=== PATIENT | male | born 1960 | race Caucasian/White ===

== ENCOUNTER 2016-12-11 04:56 | Inpatient (IN) ==
[2016-12-04 11:50] LABS: Blood Urea Nitrogen 13 mg/dl (6-20)
[2016-12-04 12:03] LABS: Basophils # (Auto) 0.1 K/mcL (0.0-0.3); Basophils % (Auto) 0.7 % (0.0-2.0); Eosinophils # (Auto) 0.1 K/mcL (0.0-0.7); Eosinophils % (Auto) 1.6 % (0.0-7.0); Granulocytes % (Auto) 64.5 % (38.0-78.0); Lymphocytes # (Auto) 2.1 K/mcL (1.5-4.8); Lymphocytes % (Auto) 26.6 % (15.5-49.0); Mean Cell Volume 86.6 fL (80.0-100.0); Mean Corpuscular HGB Conc 34.5 g/dL (31.0-36.0); Mean Corpuscular Hemoglobin 29.9 pg (26.0-34.0); Monocytes # (Auto) 0.5 K/mcL (0.1-0.9); Monocytes % (Auto) 6.6 % (1.0-12.0); Platelet Count 202 K/mcL (140-440); RBC 5.04 M/mcL (4.50-5.90); Red Cell Distribution Width 13.7 % (11.5-14.5)
[2016-12-04 13:05] LABS: Appearance,Urine CLEAR; Bilirubin,Urine NEG (NEG); Color,Urine STRAW; Glucose,Urine (UA) NEGATIVE (NEG); Leukocyte Esterase,Urine NEG /uL (NEG); Nitrate,Urine NEG (NEG); Protein,Urine NEG (NEG); Specific Gravity,Urine 1.009 (1.000-1.035); Urine Blood NEG mg/dL (<0.03); Urobilinogen,Urine NEG (NEG)
[2016-12-11] MEDS ORDERED: ceFAZolin 1 GM VIAL IV SCH ×2 (06:00→15:00)
[2016-12-11] MEDS ORDERED: TRANEXAMIC ACID 1,000 MG/10 ML VIAL IV ONE (07:45)
[2016-12-11] MEDS ORDERED: KETOROLAC 30 MG/ML VIAL IV ONE (07:45)
[2016-12-11] MEDS ORDERED: LIDOCAINE HCL/PF 100 MG/5 ML SYRINGE IV ONE (07:45)
[2016-12-11] MEDS ORDERED: MIDAZOLAM 5 MG/5 ML VIAL IV ONE (07:45)
[2016-12-11] MEDS ORDERED: ONDANSETRON 4 MG/2 ML VIAL IV ONE (07:45)
[2016-12-11] MEDS ORDERED: ROPIVACAINE HCL/PF 30 ML VIAL IJ ONE (07:45)
[2016-12-11] MEDS ORDERED: PROPOFOL 200 MG/20 ML VIAL IV ONE (07:45)
[2016-12-11] MEDS ORDERED: DEXAMETHASONE 10 MG/ML VIAL IV ONE (07:45)
[2016-12-11] MEDS ORDERED: KETAMINE 100 MG/ML ML IV ONE (07:45)
[2016-12-11] MEDS ORDERED: fentaNYL 250 MCG/5 ML VIAL IV ONE (07:45)
[2016-12-11] MEDS ORDERED: PHENYLEPHRINE 10 MG/ML VIAL IV ONE (07:45)
[2016-12-11] MEDS ORDERED: ROCURONIUM 10 MG/ML ML IV ONE (07:45)
[2016-12-11] MEDS ORDERED: GENTAMICIN SULFATE 800 MG/20 ML VIAL IR ONE (08:14)
[2016-12-11] MEDS ORDERED: PROMETHAZINE 25 MG/ML VIAL IM PRN (09:38)
[2016-12-11] MEDS ORDERED: PROMETHAZINE 25 MG/ML VIAL IV PRN (09:38)
[2016-12-11] MEDS ORDERED: METHOCARBAMOL 1,000 MG/10 ML VIAL IV PRN (09:38)
[2016-12-11] MEDS ORDERED: ONDANSETRON 4 MG/2 ML VIAL IV PRN ×2 (09:38→09:55)
[2016-12-11] MEDS ORDERED: BENZOCAINE/MENTHOL 1 LOZENGE PO PRN (09:38)
[2016-12-11] MEDS ORDERED: ATROPINE SULFATE 0.4 MG/ML VIAL IV PRN (09:38)
[2016-12-11] MEDS ORDERED: METOPROLOL TARTRATE 5 MG/5 ML VIAL IV PRN (09:38)
[2016-12-11] MEDS ORDERED: MEPERIDINE 25 MG/ML SYRINGE IV PRN (09:38)
[2016-12-11] MEDS ORDERED: IPRATROPIUM/ALBUTEROL 3 ML AMPUL.NEB NEB PRN (09:38)
[2016-12-11] MEDS ORDERED: MEPERIDINE 50 MG/ML SYRINGE IM PRN (09:38)
[2016-12-11] MEDS ORDERED: ePHEDrine 50 MG/ML AMPUL IV PRN (09:38)
[2016-12-11] MEDS ORDERED: diphenhydrAMINE 50 MG/ML VIAL IV PRN (09:38)
[2016-12-11] MEDS ORDERED: fentaNYL 100 MCG/2 ML VIAL IV PRN (09:38)
[2016-12-11] MEDS ORDERED: HYDROmorphone 2 MG/ML SYRINGE IV PRN (09:38)
[2016-12-11] MEDS ORDERED: NALOXONE HCL 0.4 MG/ML VIAL IV PRN (09:38)
[2016-12-11] MEDS ORDERED: FLUMAZENIL 0.1 MG/ML ML IV PRN (09:38)
[2016-12-11] MEDS ORDERED: LACTATED RINGERS 1,000 ML IV SCH (09:45)
[2016-12-11] MEDS ORDERED: MAGNESIUM HYDROXIDE 30 ML ORAL.SUSP PO PRN (09:55)
[2016-12-11] MEDS ORDERED: HYDROcodone/APAP 10/325MG TABLET PO PRN (09:55)
[2016-12-11] MEDS ORDERED: DEXTROSE 5%-1/2NS 1,000 ML IV SCH (10:00)
--- NOTE | 2016-12-11 10:12 | Brief Operative Note ---
Date of procedure: 12/11/16 Pre-op diagnosis: DJD right ankle Post-op diagnosis: same Procedure: Right total ankle replacement Grafts/Implants: Yes (Webster inbone talus, infinity tibia) Anesthesia: GETA Complications: none Surgeon: Brian Melgoza Packaging Machine Operator: Joseph Torres Estimated blood loss (cc): 20 Tourniquet Time (Minutes): 92 Specimens Removed/Pathology: none sent Condition: stable Disposition: PACU
--- NOTE | 2016-12-11 11:00 | XRay Report ---
CLINICAL INFORMATION: Postsurgical follow-up TECHNIQUE: AP, oblique, lateral right ankle COMPARISON: Previous examination dated 09/11/2016 FINDINGS: Bony detail is obscured by overlying cast. Status post right total ankle arthroplasty. Tibial and talar components are in anatomic alignment. Distal fibula is negative. Calcaneus is negative. IMPRESSION: Status post right total ankle arthroplasty. Interpreted and Authenticated by: Donal Newsome 12/11/16
[2016-12-11] MEDS: KETOROLAC 15 MG/ML VIAL IV SCH ×2 (11:54→17:59)
[2016-12-11] MEDS ORDERED: 0.9 % SODIUM CHLORIDE 10 ML SYRINGE IV SCH (14:00)
[2016-12-11] MEDS ORDERED: ALLOPURINOL 300 MG TABLET PO SCH (21:00)
[2016-12-11] MEDS ORDERED: AMITRIPTYLINE 25 MG TABLET PO SCH (21:00)
[2016-12-11] MEDS ORDERED: VITAMIN D3 5,000 UNIT CAPSULE PO SCH (21:00)
[2016-12-11] MEDS ORDERED: ATORVASTATIN 20 MG TABLET PO SCH (21:00)
[2016-12-11] MEDS ORDERED: SENNOSIDES 1 TABLET PO SCH (21:00)
[2016-12-11] MEDS ORDERED: DOCUSATE SODIUM 100 MG CAPSULE PO SCH (21:00)
[2016-12-11] MEDS ORDERED: TAMSULOSIN 0.4 MG CAPSULE PO SCH (21:00)
[2016-12-11] MEDS ORDERED: ASPIRIN 81 MG TAB.CHEW PO SCH (21:00)
[2016-12-11] MEDS ORDERED: LISINOPRIL 10 MG TABLET PO SCH (21:00)
== END 2016-12-11 18:45 | disposition home or self-care (01) | DRG 470 ==
LOC: MEDSUR 04:56
PROVIDERS: ADMIT Orthopaedic Surgery Foot and Ankle Surgery; ATTEND Orthopaedic Surgery Foot and Ankle Surgery